=== PATIENT | female | born 1970 | race African-American/Black ===

== ENCOUNTER 2023-01-15 19:29 | Emergency (ER) | payer SELFPAY ==
[2023-01-15 21:17] VITALS: BP 175/81; PULSE 71; RESP 18; TEMP 36.4; O2SAT 100; BMI 32.5
== END 2023-01-15 23:29 | disposition left against medical advice (07) ==
PROVIDERS: Emergency Provider Emergency Medicine; PCP Internal Medicine
DX: R03.0 Elevated blood-pressure reading, without diagnosis of hypertension (principal)
CPT/HCPCS: 99281

== ENCOUNTER 2025-02-23 09:42 | Outpatient (REF) | payer OTHER, SELFPAY ==
--- OUTSIDE RECORDS SUMMARY | 2025-02-23 11:48 | XMS_ITS | Clinical Summary ---
Author Organization [facility] Facility Address [address] [place] [id number] Care Team Providers Care Mailroom Manager Name Role Phone Rashmi Troncoso MD Primary Care Provider [phone] Allergies No known active allergies Medications polyethylene glycol-electroly hayden (NULYTELY) 420 g solution Active cetirizine (ZyrTEC) 10 MG tablet Take 10 mg by mouth 1 (one) time each day Active ibuprofen (ADVIL,MOTRIN) 600 MG tablet Take 600 mg by mouth every 6 (six) hours if needed for mild pain Active Nutritional Supplements (VITAMIN D BOOSTER PO) Take 1 tablet by mouth 1 (one) time each day Active CALCIUM-MAGNESIU M-VITAMIN D PO Take by mouth A ctive fluticasone (FLONASE) 50 MCG/ACT nasal spray Administer 1 spray into each nostril 1 (one) time each day Active Active Problems Problem Noted Date Diagnosed Date Vitamin D deficiency 02/04/2021 Essential (primary) hypertension 02/04/2021 Family History Medical History Relation Comments Diabetes Mother Hypertension Mother Arthritis Sister Relation Status Comments Mother Sister Social History Tobacco Use Types Packs/Day Years Used Date Smoking Tobacco: Former Cigarettes Smokeless Tobacco: Current Alcohol Use Standard Drinks/Week Comments Yes 0 (1 standard drink = 0.6 oz pur e alcohol) Occasional social drinker Comments Unknown Sex and Gender Information Value Date Recorded Sex Assigned at Not on file Legal Sex Female 8:40 AM EDT Gender Identity Not on file Sexual Orientation Not on file Plan of Treatment Health Maintenance Due Date Last Done Comments Breast Cancer Screening 1969 Hepatitis B Vaccine (1 of 3 - 19+ 3-dose series) 06/21 Colorectal Cancer Screening: Annual FOBT 2018 Colorectal Cancer Screening: Colonoscopy 2018 Colorectal Cancer Screening: Sigmoidoscopy 2018 Pneumococcal Vaccine: 50+ Years (1 of 1 - PCV) 019 Influenza Vaccine (#1) 2025 Insurance Cig [employer] Care Teams Mailroom Manager Relationship Specialty Start Date End Date Rashmi Troncoso MD PCP - General Internal Medicine 12/14/20
[2025-02-23 14:09] LABS: MANUAL DIFF FLAG NO
[2025-02-23 14:24] LABS: Hematocrit 37.3 % (37.0-47.0); Hemoglobin 11.9 g/dl (12.0-16.0); Imm Gran Abs Auto 0.01 X10*3/uL (0.00-0.03); Imm Gran Pct Auto 0.2 % (0.0-0.4); Lymphocytes Absolute Auto 1.5 X10*3/uL (1.2-4.9); Mean Corpuscular HGB Conc 31.9 g/dl (31.0-35.0); Mean Corpuscular Hemoglobin 28.1 pg (27.0-33.0); Mean Corpuscular Volume 88.2 fL (80.0-98.0); NRBC Abs Auto 0.000 X10*3/uL (0.0-0.012); NRBC Pct Auto 0.0 /100WBC (0.0-0.2); Platelet Count 314 X10*3/uL (160-400); Red Blood Count 4.23 X10*6/uL (4.20-5.50); White Blood Count 4.9 X10*3/uL (4.8-10.8)
[2025-02-23 14:27] LABS: Appearance Urine Clear; Glucose Urine UA Negative (Negative); PH 5.5 (5.0-9.0); Specific Gravity - Urine 1.020 (1.005-1.025)
[2025-02-23 14:54] LABS: Alanine Aminotransferase 17 U/L (0-31); Albumin Level 4.1 g/dL (3.5-5.0); Alkaline Phosphatase 102 U/L (39-117); Anion Gap 12 (12-20); Aspartate Amino Transferase 23 U/L (5-31); Blood Urea Nitrogen 16 mg/dL (9-16); Calcium 9.2 mg/dL (8.4-10.2); Carbon Dioxide 27 mmol/L (22-29); Chloride 106 mmol/L (96-108); Cholesterol 164 mg/dL (<200); Estimated Glomerular Filt Rate > 60; HDL Cholesterol 58 mg/dL (>40); Potassium 3.4 mmol/L (3.3-5.1); Sodium 142 mmol/L (135-145); Total Protein 8.1 g/dL (6.5-8.0); Triglycerides 98 mg/dL (<150)
== END 2025-02-23 09:43 | disposition home or self-care (01) ==
LOC: HO.WFDLDS 09:42
PROVIDERS: PCP Internal Medicine; Visit Provider Internal Medicine
DX: Z13.228 Encounter for screening for other metabolic disorders (principal); R63.5 Abnormal weight gain; Z13.0 Encounter for screening for diseases of the blood and blood-forming organs and certain disorders involving the immune mechanism; N89.9 Noninflammatory disorder of vagina, unspecified; Z76.89 Persons encountering health services in other specified circumstances; R73.03 Prediabetes; I10 Essential (primary) hypertension
CPT/HCPCS: 36415; 80053; 80061; 81003; 83036; 84443; 85025; 96127

== ENCOUNTER 2025-02-23 09:42 | Outpatient (AMB) | payer OTHER, SELFPAY ==
--- NOTE | 2025-02-23 09:47 | MHC.PC.OV ---
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 Intake Note: New patient visit [employer] Director Required: No Allergies No Known Allergies Allergy (Verified 02/23/25 09:47) Tobacco use date assessed: 02/23/25 Dental Screening Dental Screen Date: 02/23/25 Did you have a dental visit in the last 12 months?: Yes Did you have a dental problem in the last 6 months where you did not have access to dental care?: No Was dental information given to patient?: Patient has dentist HPI HPI Comments History of Present Illness Details 54 year old female with a past medical history of hypertension, prediabetes, glaucoma/early glaucoma presenting to [facility]. She transferred from [facility]. Requested but havent received records CV: on hctz 12.5mg daily. BP is high here. At home she notes 140/80s. She was previously on five medications for blood pressure, prediabetes but could not get refills. She would really like to lose weight and stop the need for so many medications but she has not been successful despite diet and exercise. Lost her 26 year old son in an MVA. Started an organization. Feeling stable. Had glaucoma. 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 Had ablation in her 20s. No recent menses Mammo 2 months ago-through [facility] Colonoscopy UTD ROS CONSTITUTIONAL: Denies weight loss, fever and chills. HEENT: Denies changes in vision and hearing. RESPIRATORY: Denies SOB and cough. CV: Denies palpitations and CP GI: Denies abdominal pain, nausea, vomiting and diarrhea. : Denies dysuria and urinary frequency. MSK: Denies new myalgia and joint pain. SKIN: Denies rash and pruritus. NEUROLOGICAL: Denies headache PSYCHIATRIC: Denies recent changes in mood. PHYSICAL EXAM: GENERAL: Alert and oriented x 3. NAD EYES: EOMI. Anicteric. HENT: Moist mucous membranes. No scleral icterus. No cervical lymphadenopathy. LUNGS: Clear to auscultation bilaterally. CARDIOVASCULAR: Regular rate and rhythm. No murmur. No JVD. ABDOMEN: Soft, non-tender +bs EXTREMITIES: No edema. Non-tender. SKIN: No rashes or lesions. Warm. NEUROLOGIC: No focal neurological deficits. CN II-XII grossly intact PSYCHIATRIC: Cooperative. 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 1. Little interest or pleasure in doing things: not at all 2. Feeling down, depressed, or hopeless: not at all 3. Trouble falling or staying asleep, or sleeping too much: not at all 4. Feeling tired or having little energy: several days 5. Poor appetite or overeating: nearly every day 6. Feeling bad about yourself - or that you are a failure or have let yourself or your family down: not at all 7. Trouble concentrating on things, such as reading the newspaper or watching television: not at all 8. Moving or speaking so slowly that other people could have noticed. Or the opposite - being so fidgety or restless that you have been moving around a lot more than usual: not at all 9. Thoughts that you would be better off or of hurting yourself in some way: not at all Total score: 4 Depression Screening Interpretation: Negative Depression Screening Done: Yes 09666 - PHQ-9 Billing: Yes Source: Developed by Drs. Bradford Florian, Netta Stoll, Nito Joshua and colleagues, with an educational pelon from [employer]. Thrive Questionnaire Date Thrive assessed: 02/23/25 I am a: Patient What is your living situation today?: I have a steady place to live Within the past 12 months, did the food you bought not last and you didn't have the money to get more?: Never true Within the past 12 months, did you worry whether your food would run out before you got money to buy more?: Never true Do you have trouble paying for medicines?: No Do you have trouble getting transportation to medical appointments?: No Do you have trouble paying your heating and electricity bill?: No Do you have trouble taking care of your child, family member or friend?: No Do you have trouble with day-to-day activities such as bathing, preparing meals, shopping, managing finances, etc.?: No Are you currently unemployed and looking for a job?: No Are you interested in more education?: No Please select the resources that you would like help with: None Currently or been in a relationship where the following occur: No concerns reported THRIVE Score: 0 AUDIT C Alcohol Use Questionnaire (AUDIT-C) 1. How often do you have a drink containing alcohol?: Monthly or less 2. How many drinks containing alcohol do you have on a typical day when you are drinking?: 1 or 2 3. How often do you have six or more drinks on one occasion?: Never Total Score: 1 PHILIPPE-7 AMB Questionnaire PHILIPPE-7 Date PHILIPPE - 7 assessed: 02/23/25 Feeling nervous, anxious, or on edge: 0 = Not at all Not being able to stop or control worryin = Not at all Worrying too much about different things: 0 = Not at all Trouble relaxin = Not at all Being so restless that it is hard to sit still: 0 = Not at all Becoming easily annoyed or irritable: 0 = Not at all Feeling afraid as if something awful might happen: 0 = Not at all Total PHILIPPE-7 score (0-4 normal; 5-9 mild; 10-14 moderate; 15-21 severe): 0 Source: Developed by Drs. Bradford Florian, Netta Stoll, Nito Joshua and colleagues, with an educational pelon from [employer]. PHILIPPE-7 Assessment Billing PHILIPPE-7 Assessment Tool: PHILIPPE-7 Assessment 87579 Physical exam (Primary Care) Vital Signs: Last Vital Signs Temp 98.2 F 02/23/25 09:53 Pulse 73 02/23/25 09:53 Resp 14 02/23/25 09:53 BP 172/96 H 02/23/25 09:59 Pulse Ox 100 02/23/25 09:53 Oxygen Delivery Method Room Air 02/23/25 09:53 BMI result Body Mass Index 35.5 Tobacco/Smoking Status: Tobacco use Status Tobacco use date assessed 02/23/25 02/23/25 09:50 Patient Tobacco Use Status Never used Tobacco 02/23/25 09:50 e-Cigarette/Vaping Use Never Used 02/23/25 09:50 PHQ-9: PHQ-9 Score PHQ-9: Total score 4 02/23/25 10:01 Depression Screening Interpretation: Negative Thrive Assessment: Date of Thrive Assessment Date Thrive assessed 02/23/25 02/23/25 09:50 Currently or been in a relationship where the following occur: No concerns reported Coding Level of Care Code New Pt Level 4 (86549) Complex EM visit Add On G2211 Diagnoses Establishing care with new doctor, encounter for Z76.89 Prediabetes R73.03 Primary hypertension I10 Hypertension type: primary hypertension Additional Codes PHILIPPE-7 Assessment Billing - PHILIPPE-7 Assessment Tool: PHILIPPE-7 Assessment 19336 ([id number]) PHQ-9 - 78730 - PHQ-9 Billing: Yes ([id number]) Assessment & Plan Assessment & Plan (1) Establishing care with new doctor, encounter for: Code(s): Z76.89 - Persons encountering health services in other specified circumstances (2) Prediabetes: Code(s): R73.03 - Prediabetes Category: Medical (3) Hypertension: Code(s): I10 - Essential (primary) hypertension Category: Medical Qualifiers: Hypertension type: primary hypertension Qualified Code(s): I10 - Essential (primary) hypertension Plan 54 year old to establish care Past medical, surgical, social history reviewed HTN-continue hctz. Start GLP, continue home monitoring. labs ordered. Close follow up. Will add additional medications if it continues to be high Orders: Orders Comprehensive Met. Panel Today R63.5 - Abnormal weight gain, Z13.0 - Encounter for screening for diseases of the blood and blood-forming organs and certain disorders involving the immune mechanism, Z13.228 - Encounter for screening for other metabolic disorders Hemoglobin A1c Today R63.5 - Abnormal weight gain, Z13.228 - Encounter for screening for other metabolic disorders UA CC w/rflx Micro + Cult Today N89.9 - Noninflammatory disorder of vagina, unspecified Bacterial Vaginosis Panel Today N89.9 - Noninflammatory disorder of vagina, unspecified Complete Blood Count Auto Diff Today R63.5 - Abnormal weight gain, Z13.0 - Encounter for screening for diseases of the blood and blood-forming organs and certain disorders involving the immune mechanism, Z13.228 - Encounter for screening for other metabolic disorders TSH reflex Free T4 Today R63.5 - Abnormal weight gain, Z13.0 - Encounter for screening for diseases of the blood and blood-forming organs and certain disorders involving the immune mechanism, Z13.228 - Encounter for screening for other metabolic disorders Lipid Panel Today R63.5 - Abnormal weight gain, Z13.0 - Encounter for screening for diseases of the blood and blood-forming organs and certain disorders involving the immune mechanism, Z13.228 - Encounter for screening for other metabolic disorders Medications: New Wegovy (semaglutide (weight loss)) 0.25 mg (0.5 mL) subcut QWEEK 2 mL 3RF NS ondansetron 4 mg PO Q8H PRN 30 tabs 0RF nausea and vomiting hydrochlorothiazide 12.5 mg PO DAILY 90 caps 3RF
[2025-02-23 09:53] VITALS: BP 170/96; PULSE 73; RESP 14; TEMP 36.8; O2SAT 100; BMI 35.5
[2025-02-23 09:59] VITALS: BP 172/96
--- OUTSIDE RECORDS SUMMARY | 2025-02-23 10:33 | XMS_ITS ---
Author Name [facility] Organization Unknown Problems Problem Status Onset Date Problem Type Date of Resoluti on Source Encounter for screening mammogram for malignant neoplasm of breast active EncounterDiagnosisAct CCT Encounters Encounter Type Encounter Reason Primary Diagnosis Location Date Ambulatory Encounter for screening mammogram for malignant neoplasm of breast Encounter for screening mammogram for malignant neoplasm of breast [facility] 01/21/2025 Care Team Organization Name Specialty Phone Email Start Date End [facility] 01/21/2025 02/19/2025 [facility] [place] [facility] NO PCP Primary Care 12/22/2024 [facility] REFUGIO HOLLIDAY Primary Care 12/08/2022 02/18/2024 [facility] REFUGIO HOLLIDAY Primary Care 11/06/2022 02/18/2024 [facility] [place] Primary Care 07/10/2022 [facility] [place] Primary Care 05/09/2022
--- OUTSIDE RECORDS SUMMARY | 2025-02-23 10:33 | XMS_ITS | Clinical Summary ---
Author Organization [facility] Address [address] [place] [address] Care Team Providers Care Sociology Teacher Name Role Phone Pcp, No Primary Care Provider Unavailabl e Encounters Date Type Department Care Team Description 01/21/2025 8:30 AM EDT - 01/21/2025 11:59 PM EDT Hospital Encounter [facility] Mammography [address] [place] [address] System, Provider Not In Encounter for screening mammogram for malignant neoplasm of breast Discharge Disposition: Home or Self Care 01/21/2025 Travel from Last 3 Months Social History Tobacco Use Types Packs/Day Years Used Date Smoking Tobacco: Never Assessed Comments Unknown Sex and Gender Information Value Date Recorded Sex Assigned at Female 12/22/2024 9:27 AM EDT Legal Sex Female 11:57 AM EDT Gender Identity Female 12/22/2024 9:27 AM EDT Sexual Orientation Heterosexual (straight) 12/22 9:27 AM EDT Plan of Treatment Health Maintenance Due Date Last Done Comments Hepatitis C Virus Screening 1969 HIV Screening 1982 DTaP/Tdap/Td Vaccines (1 - Tdap) 1988 Hepatitis B Vaccines (1 of 3 - 19+ 3-dose series) 06/02 Pap Smear (Ages 21-65) 1990 Colonoscopy 2014 Pneumococcal Vaccines 50+ (1 of 1 - PCV) 2019 Zoster (Shingles) Vaccine (1 of 2) 2019 COVID-19 Vaccine (1 - season) 2024 Influenza Vaccine 01/30/2025 Mammogram 01/21/2027 01/21/2025 Procedures Procedure Name Priority Date/Time Associated Diagnosis Comments MM MAMMOGRAM SCREENING-BILAT (MOBILE) Routine 01/21/2025 8:53 AM EDT Encounter for screening mammogram for malignant neoplasm of breast from Last 3 Months Results * MM Mammogram screening-Bilateral (mobile) (01/21/2025 8:53 AM EDT) Anatomical Region Laterality Modality Breast Bilateral Mammography 01/21/2025 8:41 AM EDT Impressions 01/23/2025 2:34 PM EDT No mammographic evidence of malignancy. OVERALL ASSESSMENT: BI-RADS 1: Negative. RECOMMENDATION: Routine screening mammography recommended in 1 year The patient will receive a lay summary of the results of this breast imaging exam. Lay summaries for mammography examinations will also identify the patient's personal breast tissue composition as required by state law. If the patient has a finding requiring further evaluation, our facility will contact the patient to arrange additional imaging. Narrative 01/23/2025 2:34 PM EDT EXAMINATION: MM BILATERAL DIGITAL SCREENING CLINICAL INFORMATION: Screening. Baseline COMPARISON: None TECHNIQUE: Bilateral full field direct digital mammography was performed in the standard projections. Computer-aided detection was utilized by the radiologist in the interpretation of this examination. FINDINGS: There are scattered areas of fibroglandular density. (ACR BI-RADS breast composition Category b)*. Right Breast: There are no suspicious masses, grouped calcifications or architectural distortion. Left Breast: There are no suspicious masses, grouped calcifications or architectural distortion. us Rad-Self Referred MD IMG MAMMOGRAPHY ORDERABLES Final Result from Last 3 Months Insurance [employer] HMO/POS Care Teams Sociology Teacher Relationship Specialty Start Date End Date Pcp, Maria Elena PCP - General General Medicine 02/26/24
== END 2025-02-23 10:29 | disposition home or self-care (01) ==
LOC: HO.HMCFM 09:43
PROVIDERS: PCP Internal Medicine; Visit Provider Internal Medicine
DX: Z76.89 Persons encountering health services in other specified circumstances (principal); R73.03 Prediabetes; I10 Essential (primary) hypertension

== ENCOUNTER 2025-05-26 09:57 | Outpatient (AMB) | payer OTHER, SELFPAY ==
--- OUTSIDE RECORDS SUMMARY | 2025-05-22 14:30 | XMS_ITS | Encounter Summary ---
Author Organization [facility] Address [address] [place] [address] Care Team Providers Care Warp Trucker Name Role Phone Ubaldo Urbina MD Primary Care Provider Reason for Visit * Reason Comments Vaginal/vulvar Complaint Pt here for vag inal dryness and odor Denies any burning or itching Encounter Details Date Type Department Care Team (Late st Contact Info) Description 05/22/2025 2:30 PM EST Office Visit [facility] [place] [address] [place] [address] [place] [phone] Khurram Ruffin MD [address] [facility] [address] [place] [address] Vaginal odor (Primary Dx) Social History Tobacco Use Types Packs/Day Years Used Date Smoking Tobacco: Former Cigarettes Smokeless Tobacco: Current Alcohol Use Standard Drinks/Week Comments Yes 0 (1 standard drink = 0.6 oz pur e alcohol) Comments Unknown Sex and Gender Information Value Date Recorded Sex Assigned at Not on file Legal Sex Female 6:29 AM EST Gender Identity Not on file Sexual Orientation Not on file documented as of this encounter Last Filed Vital Signs Vital Sign Reading Time Taken Comments Blood Pressure 148/84 05/22/2025 3:26 PM EST Pulse 62 05/22/2025 3:26 PM EST Temperature - - Respiratory Rate - - Oxygen Saturation - - Inhaled Oxygen Concentration - - Weight 87.9 kg (193 lb 11.2 oz) 05/22/2025 3:26 PM EST Height 154.9 cm (5' 1 ) 05/22/2025 3:26 PM EST Body Mass Index 36.6 05/22/2025 3:26 PM EST documented in this encounter Plan of Treatment Upcoming Encounters Date Type Department Care Team (Late st Contact Info) Description 07/21/2025 11:00 AM EST Office Visit Obstetrics and Gynecology [facility] [address] [place] [phone] Khurram Ruffin MD [address] [place] [address] [place] [phone] 08/18/2025 11:00 AM EST Consult Obstetrics and Gynecology [facility] [address] [place] [phone] April Cardoza, [facility] [address] [place], [place] [phone] documented as of this encounter Procedures Procedure Name Priority Date/Time Associated Diagnosis Comments BACTERIAL VAGINITIS PATHOGENS BY PCR Routine 05/22/2025 3:26 PM EST Vaginal odor CHLAMYDIA TRACHOMATIS AND NEISSERIA GONORRHOEAE PCR Routine 05/22/2025 3:26 PM EST Vaginal odor documented in this encounter Results * (ABNORMAL) Bacterial vaginitis pathogens molecular study (05/22/2025 3:26 PM EST) Gardnerella vaginosis Positive(A) Negative LAB MOLECULAR DIAGNOSTICS METHOD 05/23/2025 2:05 AM EST [facility] Nakia Species Negative Negative LAB MOLECULAR DIAGNOSTICS METHOD 05/23/2025 2:05 AM EST [facility] Nakia glabrata Negative Negative LAB MOLECULAR DIAGNOSTICS METHOD 05/23/2025 2:05 AM EST [facility] Trichomonas vaginalis Negative Negative LAB MOLECULAR DIAGNOSTICS METHOD 05/23/2025 2:05 AM EST [facility] Swab Cervix uteri structure / Unknown Non-blood Collection / Unknown 05/22/2025 3:26 PM EST 05/22/2025 3:26 PM EST Khurram Ruffin MD LAB MICROBIOLOGY - GENERAL ORD ERABLES Final Result Performing Organization Address City/[facility]/ZIP Co de Phone Number [facility] [address] [place] [address], [place] [phone] * Chlamydia trachomatis and Neisseria gonorrhoeae molecular study (05/22/2025 3:26 PM EST) N. gonorrhoeae, RNA Probe Negative Negative LAB MOLECULAR DIAGNOSTICS METHOD 05/23/2025 4:02 AM EST [facility] Chlamydia, RNA Probe Negative Negative LAB MOLECULAR DIAGNOSTICS METHOD 05/23/2025 4:02 AM EST [facility] Swab Vaginal structure / Unknown Non-blood Collection / Unknown 05/22/2025 3:26 PM EST 05/22/2025 3:26 PM EST Khurram Ruffin MD LAB MICROBIOLOGY - GENERAL ORD ERABLES Final Result [facility] [address] [place] [address], [place] [phone] documented in this encounter Visit Diagnoses Diagnosis Vaginal odor- Primary Unspecified symptom associated with female genital organs documented in this encounter Care Teams Warp Trucker Relationship Specialty Start Date End Date Ubaldo Urbina MD [address] [place] [phone] PCP - General 10/16/22 documented as of this encounter
--- NOTE | 2025-05-26 10:16 | A.OFFPC_ITS ---
Vital Signs 05/26/25 10:24 Height 5 ft 1.18 in Weight 189 lb BMI 35.5 BP 122/84 Blood Pressure Location Rt brachial Position Sitting Respiration 14 Pulse 71 Pulse Source Pulse Oximeter Pulse Oximetry (%) 99 Oxygen Delivery Method Room Air Intake Visit Reasons: DM Intake Note: Diabetes follow up Biscuit Packer Required: No Allergies No Known Allergies Allergy (Verified 05/26/25 10:18) Tobacco use date assessed: 05/26/25 Dental Screening Dental Screen Date: 02/23/25 HPI HPI Comments History of Present Illness Details 54 year old female with a past medical h istory of hypertension, prediabetes, glaucoma/early glaucoma presenting for follow up CV: on hctz 12.5mg daily. Normotensive. She was unsuccessful despite diet and exercise. She lost a few pounds with a free sample of mounjaro. Her insurance wont cover. Her last A1C was 6.3% it improved today to 5.6% Lost her 26 year old son in an MVA. Started an organization. Feeling stable. Had glaucoma. 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 Had ablation in her 20s. No recent menses Mammo 2 months ago-through [facility] Colonoscopy UTD ROS CONSTITUTIONAL: Denies weight loss, fever and chills. HEENT: Denies changes in vision and hearing. RESPIRATORY: Denies SOB and cough. CV: Denies palpitations and CP GI: Denies abdominal pain, nausea, vomiting and diarrhea. : Denies dysuria and urinary frequency. MSK: Denies new myalgia and joint pain. SKIN: Denies rash and pruritus. NEUROLOGICAL: Denies headache PSYCHIATRIC: Denies recent changes in mood. PHYSICAL EXAM: GENERAL: Alert and oriented x 3. NAD EYES: EOMI. Anicteric. HENT: Moist mucous membranes. No scleral icterus. No cervical lymphadenopathy. LUNGS: Clear to auscultation bilaterally. CARDIOVASCULAR: Regular rate and rhythm. No murmur. No JVD. ABDOMEN: Soft, non-tender +bs EXTREMITIES: No edema. Non-tender. SKIN: No rashes or lesions. Warm. NEUROLOGIC: No focal neurological deficits. CN II-XII grossly intact PSYCHIATRIC: Cooperative. 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 Current occupational exposures/hazards: No Cognitive needs: No Hearing needs: No Vision needs: No Questionnaire Thrive Questionnaire Date Thrive assessed: 02/23/25 I am a: Patient What is your living situation today?: I have a steady place to live Within the past 12 months, did the food you bought not last and you didn't have the money to get more?: Never true Within the past 12 months, did you worry whether your food would run out before you got money to buy more?: Never true Do you have trouble paying for medicines?: No Do you have trouble getting transportation to medical appointments?: No Do you have trouble paying your heating and electricity bill?: No Do you have trouble taking care of your child, family member or friend?: No Do you have trouble with day-to-day activities such as bathing, preparing meals, shopping, managing finances, etc.?: No Are you currently unemployed and looking for a job?: No Are you interested in more education?: No Please select the resources that you would like help with: None Currently or been in a relationship where the following occur: No concerns reported THRIVE Score: 0 AUDIT C Alcohol Use Questionnaire (AUDIT-C) 1. How often do you have a drink containing alcohol?: Monthly or less 2. How many drinks containing alcohol do you have on a typical day when you are drinking?: 1 or 2 3. How often do you have six or more drinks on one occasion?: Never Total Score: 1 PHILIPPE-7 AMB Questionnaire PHILIPPE-7 Date PHILIPPE - 7 assessed: 02/23/25 Source: Developed by Drs. Bradford Florian, Netta Stoll, Nito Joshua and colleagues, with an educational eplon from [employer]. Physical exam (Primary Care) Vital Signs: Last Vital Signs Pulse 71 05/26/25 10:24 Resp 14 05/26/25 10:24 BP 122/84 05/26/25 10:24 Pulse Ox 99 05/26/25 10:24 Oxygen Delivery Method Room Air 05/26/25 10:24 BMI result Body Mass Index 35.5 Tobacco/Smoking Status: Tobacco use Status Tobacco use date assessed 05/26/25 05/26/25 10:34 Patient Tobacco Use Status Never used Tobacco 05/26/25 10:17 e-Cigarette/Vaping Use Never Used 05/26/25 10:17 Thrive Assessment: Date of Thrive Assessment Date Thrive assessed 02/23/25 05/26/25 10:17 Currently or been in a relationship where the following occur: No concerns reported Results AMB Hemoglobin A1c AMB Hemoglobin A1c 5.6 % Last Edit by Bri Dorado CMA on 05/26/25 10:36 Results Reviewed Results Reviewed: Laboratory Last Values Hgb A1c (Clinic) 5.6 % (4.0-6.0) 05/26/25 10:34 Coding Level of Care Code Est Pt Level 4 (20942) Diagnoses Obesity (BMI 30-39.9) E66.9 Assessment & Plan Assessment & Plan (1) Obesity (BMI 30-39.9): Code(s): E66.9 - Obesity, unspecified Category: Medical Plan Obesity, htn, prediabetes. Good candidate for GLP but not covered Trial phentermine. Monitor BP. referral to weight management Orders: Orders AMB Hemoglobin A1c Today R73.03 - Prediabetes Referrals Medical Weight Management Referral I10 - Essential (primary) hypertension, R63.5 - Abnormal weight gain, R73.03 - Prediabetes Medications: New phentermine must administer 30 minutes before or 1-2 hours after breakfast [id number] [facility] GroupGDRX Member [id number] 37.5 mg PO DAILY 30 caps 3RF Mounjaro (tirzepatide) for 4 weeks 2.5 mg (0.5 mL) subcut QWEEK 2 mL 3RF NS Discontinued Wegovy (semaglutide (weight loss)) Discontinued Reason: Doctor's Order 0.25 mg (0.5 mL) subcut QWEEK 2 mL 3RF NS
[2025-05-26 10:24] VITALS: BP 122/84; PULSE 71; RESP 14; O2SAT 99; BMI 35.5
--- OUTSIDE RECORDS SUMMARY | 2025-05-26 11:56 | XMS_ITS | Clinical Summary ---
Author Organization [facility] Address [address] [place] [address] Care Team Providers Care Meat Grading Machine Operator Name Role Phone Pcp, No Primary Care Provider Unavailabl e Social History Tobacco Use Types Packs/Day Years [...] Zoster (Shingles) Vaccine (1 of 2) 2019 Influenza Vaccine 01/30/2025 COVID-19 Vaccine (1 - season) 2025 Mammogram 01/21/2027 01/21/2025 RSV Vaccine 50 years and old er and Patients (1 - 1-dose 75+ series) 2044 Procedures Procedure Name Priority Date/Time Associated Diagnosis Comments MM MAMMOGRAM SCREENING-BILAT (MOBILE) Routine 01/21/2025 8:53 AM EDT Encounter for screening mammogram for malignant neoplasm of breast from Last 3 Months or Most Recently Relevant to Health Maintenance Results * MM Mammogram screening-Bilateral (mobile) (01/21/2025 [...] ORDERABLES Final Result from Last 3 Months or Most Recently Relevant to Health Maintenance Insurance [employer] HMO/POS Care Teams Meat Grading Machine Operator Relationship Specialty Start Date End Date Pcp, No PCP - General General Medicine 02/26/24
--- OUTSIDE RECORDS SUMMARY | 2025-05-26 11:56 | XMS_ITS | Encounter Summary ---
Author Organization [facility] Address [address] [place] [address] Care Team Providers Care Hyperion Essbase Developer Name Role Phone Ubaldo Urbina MD Primary Care Provider Encounter Details Date Type Department Care Team (Late Contact Info) Description 05/26/2025 Telephone Obstetrics and Gynecology [facility] [address] [place] [phone] Khurram Ruffin MD [address] [place] [address] Social History Tobacco Use Types Packs/Day Years [...] on file documented as of this encounter Progress Notes * Evelina Howard - 05/26/2025 8:29 AM EST Patient called into office regarding prescribed Flagyl medication. Patient reports picking up the meds. C/o the pills being too large for her stomach to handle. Patient requesting a Rx for a gel like medication for relief instead. Confirmed call back # on file : [phone] documented in this encounter Plan of Treatment Upcoming Encounters Date Type Department Care Team (Late Contact Info) Description 07/21/2025 11:00 AM EST Office Visit Obstetrics and Gynecology [facility] [address] [place] [phone] Khurram Ruffin MD [address] [place] [address] [place] [phone] 08/18/2025 11:00 AM EST Consult Obstetrics and Gynecology [facility] [address] [place] [phone] April Cardoza, [facility] [address] [place], [place] [phone] documented as of this encounter Visit Diagnoses Not on filedocumented in this encounter Care Teams Hyperion Essbase Developer Relationship Specialty Start Date End Date Ubaldo Urbina MD [address] [place] [address] PCP - General 10/16/22 documented as of this encounter
--- OUTSIDE RECORDS SUMMARY | 2025-05-26 11:56 | XMS_ITS | Clinical Summary ---
Author Organization [facility] [address] [place] [address] [place] [phone] Phone Care Team Providers Care French Pastry Cook Name Role Phone Ubaldo Urbina MD Primary Care Provider Allergies No known active allergies Medications amLODIPine (NORVASC) 10 mg tablet Take 1 tablet (10 mg total) by mouth 1 (one) time each day. 02/18/2024 Active calcium citrate/vitamin D3 (CALCIUM CITRATE + D ORAL) Take by mouth daily. Active latanoprost (XALATAN) 0.005 % ophthalmic solution INSTILL 1 DROP IN BOTH EYES EVERY DAY AT BEDTIME Active losartan (COZAAR) 100 mg tablet Take 1 tablet (100 mg total) by mouth 1 (one) time each day. 12/10/2023 Active metFORMIN (GLUCOPHAGE) 850 mg tablet Take 1 tablet (850 mg total) by mouth 2 (two) times a day with meals. 12/06/2023 Active metoprolol succinate (TOPROL-XL) 50 mg 24 hr tablet Take 1 tablet (50 mg total) by mouth 1 (one) time each day. Active timolol (TIMOPTIC-XR) 0.5 % ophthalmic gel-forming 1 Drop daily. Active hydroCHLOROthia zide (MICROZIDE) 12.5 mg capsule TAKE 1 CAPSULE BY MOUTH EVERY MORNING 30 capsule 11/07/2024 Active metroNIDAZOLE (FLAGYL) 500 mg tabletIndicatio ns:BV (bacterial vaginosis) Take 1 tablet (500 mg total) by mouth 2 (two) times a day for 7 days. Do not use mouth wash or consume alcohol until 48 hours after last dose 14 tablet 05/25/2025 Active Active Problems Problem Noted Date Diagnosed Date Hypertension 05/09/2022 Prediabetes 05/04/2022 Chronic post-traumatic headache, not intractable 11/29/2016 Allergic rhinitis 11/04/2016 Obesity (BMI 30-39.9) 10/20/2016 Encounters Date Type Department Care Team Description 05/26/2025 Telephone [facility]s [facility] [address] [place] [phone] Khurram Ruffin MD 05/25/2025 Results Follow-Up [place] [phone] Khurram Ruffin MD 05/22/2025 2:30 PM EST Office Visit [facility] [place] [address] [place], [place] [address] [phone] Khurram Ruffin MD Vaginal odor (Primary Dx) from Last 3 Months Immunizations Immunization Administration Dates Next Due Measles 07/27/2006 Mumps 07/27/2006 Pfizer SARS-CoV-2 COVID-19, mRNA, LNP-S, preservative free 11/20/2020,10/20/2020 Rubella 07/27/2006 Tdap Tetanus diptheria acell ular pertussis (Boostrix; Adacel) 7yo and older 10/16/2014 Surgical History Surgery Date Site/Laterality Comments SECTION 1993 PROCEDURE: HISTORICAL ; COMMENT: x1 OTHER SURGICAL HISTORY 1997 PROCEDURE: CA HYSTEROSCOPY ENDOMETRIAL ABLATION WISDOM TOOTH EXTRACTION PROCEDURE: HISTORICAL WISDOM TEETH EXTRACTION TUBAL LIGATION PROCEDURE: HISTORICAL TUBAL LIGATION COLONOSCOPY 11/11/2020 PROCEDURE: HISTORICAL COLONOSCOPY; COMMENT: mild diverticulosis, no polyps Medical History Medical History Date Comments Obesity (BMI 30-39.9) 10/20/2016 DX:Obesity (BMI 30-39.9) Vitamin D deficiency 11/04/2016 DX:Vitamin D deficiency Allergic rhinitis 11/04/2016 DX:Allergic rh initis Family History Medical History Relation Name Comments Diabetes Mother hypertension Arthritis Sister Breast cancer Neg Hx Relation Name Status Comments Father Alive Maternal Grandfather Maternal Grandmother Mother Alive Paternal Grandfather Paternal Grandmother Sister Alive x 1 healthy Social History Tobacco Use Types Packs/Day Years Used Date Smoking Tobacco: Former Cigarettes Smokeless Tobacco: Current Alcohol Use Standard Drinks/Week Comments Yes 0 (1 standard drink = 0.6 oz pur e alcohol) Comments Unknown Sex and Gender Information Value Date Recorded Sex Assigned at Not on file Legal Sex Female 6:29 AM EST Gender Identity Not on file Sexual Orientation Not on file Obstetrics History Last Filed Vital Signs Vital Sign Reading [...] Mass Index 36.6 05/22/2025 3:26 PM EST Plan of Treatment Upcoming Encounters Date Type Department Care Team (Late st Contact Info) Description 07/21/2025 11:00 AM EST Office Visit Obstetrics and Gynecology [facility] [address] [place] [phone] Khurram Ruffin MD [address] [place] [address] [place] [phone] 08/18/2025 11:00 AM EST Consult Obstetrics and Gynecology [facility] [address] [place] [phone] April Cardoza, [facility] [address] [place], [place] [phone] Health Maintenance Due Date Last Done Comments Hepatitis B Vaccines (1 of 3 - 19+ 3-dose series) 1988 Cervical Cancer Screening: P ap Smear 06/05/2019 06/05/2016 Pneumococcal Vaccine: 50+ Years (1 of 1 - PCV) 2019 Zoster Vaccines (1 of 2) 2019 HIV Screening 06/10/2022 Social Influencers of Health Screening 06/10/2022 Depression Screening 07/02/2024 Hypertension/CHF/CAD Annual BMP Blood Test 08/09/2024 08/09/2023 DTaP,Tdap,and Td Vaccines (2 - Td or Tdap) 10/16/2024 10/16/2014 COVID-19 Vaccine (3 - 2024-2 6 season) 2025 11/20/2020, 10/20/2020 Influenza Vaccine (#1) 2025 Breast Cancer Screening 01/21/2027 01/22/20 25, 08/15/2019 Cholesterol Screening (Lipid Panel) 08/09/2028 08/09/2023 Colorectal Cancer Screening: Colonoscopy 11/11/2030 11/11/2020 RSV Immunization Adult Patients (1 - 1-dose 75+ series) 2044 Hepatitis C Screening Completed 01/29/2023 HIB Vaccines Aged Out No longer eligi ble based on patient's age to complete this topic HPV Vaccines Aged Out No longer eligi ble based on patient's age to complete this topic Hepatitis A Vaccines Aged Out No long er eligible based on patient's age to complete this topic IPV Vaccines Aged Out No longer eligi ble based on patient's age to complete this topic MMR Vaccines Aged Out No longer eligi ble based on patient's age to complete this topic Meningococcal ACWY Vaccine Aged Out N o longer eligible based on patient's age to complete this topic Meningococcal B Vaccine Aged Out No l onger eligible based on patient's age to complete this topic RSV Immunization Patients Under 20 months Aged Out No longer eligible b ased on patient's age to complete this topic Varicella Vaccines Aged Out No longer eligible based on patient's age to complete this topic Procedures Procedure Name Priority Date/Time Associated Diagnosis Comments BACTERIAL VAGINITIS PATHOGENS BY PCR Routine 05/22/2025 3:26 PM EST Vaginal odor CHLAMYDIA TRACHOMATIS AND NEISSERIA GONORRHOEAE PCR Routine 05/22/2025 3:26 PM EST Vaginal odor HM ANNUAL BMP BLOOD TEST Routine 08/09/2023 LIPID PANEL Routine 08/09/2023 HEPATITIS C SCREENING Routine 01/29/2023 COLONOSCOPY Routine 11/11/2020 SCR MAMMO BI INCL CAD Routine 08/15/2019 11:16 AM EST Encounter for screening mammogram for malignant neoplasm of breast PAP SMEAR Routine 06/05/2016 from Last 3 Months or Most Recently Relevant to Health Maintenance Results * (ABNORMAL) Bacterial vaginitis pathogens molecular study (05/22/2025 3:26 PM EST) Gardnerella vaginosis Positive(A) Negative LAB MOLECULAR DIAGNOSTICS METHOD 05/23/2025 2:05 AM EST [facility] Nakia Species Negative Negative LAB MOLECULAR DIAGNOSTICS METHOD 05/23/2025 2:05 AM EST [facility] Nakia glabrata Negative Negative LAB MOLECULAR DIAGNOSTICS METHOD 05/23/2025 2:05 AM EST [facility] Trichomonas vaginalis Negative Negative LAB MOLECULAR DIAGNOSTICS METHOD 05/23/2025 2:05 AM EST [facility] Swab Cervix uteri structure / Unknown Non-blood Collection / Unknown 05/22/2025 3:26 PM EST 05/22/2025 3:26 PM EST Khurram Ruffin MD LAB MICROBIOLOGY - GENERAL ORD ERABLES Final Result [facility] [address] [place] [address], [place] [phone] * Chlamydia trachomatis and Neisseria gonorrhoeae molecular study (05/22/2025 3:26 PM EST) N. gonorrhoeae, RNA Probe Negative Negative LAB MOLECULAR DIAGNOSTICS METHOD 05/23/2025 4:02 AM EST [facility] Chlamydia, RNA Probe Negative Negative LAB MOLECULAR DIAGNOSTICS METHOD 05/23/2025 4:02 AM EST [facility] Swab Vaginal structure / Unknown Non-blood Collection / Unknown 05/22/2025 3:26 PM EST 05/22/2025 3:26 PM EST Khurram Ruffin MD LAB MICROBIOLOGY - GENERAL ORD ERABLES Final Result [facility] [address] [place] [address], * Annual BMP Blood Test (08/09/2023) Pathologist [facility] Annual BMP Blood Test ABSTRACTED Historical Provider HEALTH MAINTENANCE Final Result * Lipid panel (08/09/2023) [facility] LDL/HDL Ratio 2 0 - 4 Triglycerides 135 0 - 150 mg/dL Cholesterol 183 0 - 200 mg/dL HDL 77 >=40 mg/dL LDL Cholesterol 79 0 - 100 mg/dL Blood Venous blood specimen / Unknown Historical Provider LAB BLOOD ORDERABLES Shobha l Result * Hepatitis C Screening (01/29/2023) Pathologist [facility] Hepatitis C Screening ABSTRACTED [facility] Provider HEALTH MAINTENANCE Final Result * Colonoscopy (11/11/2020) Pathologist [facility] Colonoscopy NO INTERPRETATION , ABSTRACTED Anatomical Region Laterality Modality Other Historical Provider HEALTH MAINTENANCE Final Result * SCR MAMMO BI INCL CAD (08/15/2019 11:16 AM EST) Anatomical Region Laterality Modality Radiographic Torie ging 05/09/2019 4:04 PM EST Narrative 08/15/2019 2:19 PM EST This is a summary report. The complete report is available in the patient's medical record. If you cannot access the medical record, please contact the sending organization for a detailed fax or copy. Exam: Screening mammogram Findings: Digital bilateral full-field screening mammography is performed and interpreted with the aid of computer-aided detection. Comparison is made with 09/26/2013 and 05/16/2010. Breast parenchyma is heterogeneously dense, limiting mammographic sensitivity. No new suspicious mass, architectural distortion, or suspicious calcifications. Impression: No mammographic evidence of malignancy. BI-RADS 1 - negative 5 year breast cancer risk assessment 0.9 % Lifetime breast cancer risk assessment 6.7 % Breast cancer risk category Low (<15%) Procedure Note Bruna Dowling MD - 06/20/2022 This is a summary report. The complete report is available in thepatient's medical record. If you cannot access the medical record, pleasecontact the sending organization for a detailed fax or copy. Exam: Screening mammogram Findings: Digital bilateral full-field screening mammography is performedand interpreted with the aid of computer-aided detection. Comparison ismade with 09/26/2013 and 05/16/2010. Breast parenchyma is heterogeneously dense, limiting mammographicsensitivity. No new suspicious mass, architectural distortion, orsuspicious calcifications. Impression: No mammographic evidence of malignancy. BI-RADS 1 - negative 5 year breast cancer risk assessment 0.9 % Lifetime breast cancer risk assessment 6.7 % Breast cancer risk category Low (<15%) Nydia Giordano MD IMG XR PROCEDURES Final Res ult * Hm Pap Smear (06/05/2016) HM Pap smear NO INTERPRETATION , ABSTRACTED Historical Provider HEALTH MAINTENANCE Final Result from Last 3 Months or Most Recently Relevant to Health Maintenance Insurance [employer] Care Teams French Pastry Cook Relationship Specialty Start Date End Date Ubaldo Urbina MD [address] [place] [phone] PCP - General 10/16/22
--- OUTSIDE RECORDS SUMMARY | 2025-05-26 11:56 | XMS_ITS | Encounter Summary ---
Author Organization [facility] Address [address] [place] [address] Care Team Providers Care Remediation Technician Name Role Phone Ubaldo Urbina MD Primary Care Provider Encounter Details Date Type Department Care Team (Late st Contact Info) Description 05/25/2025 Results Follow-Up [facility] [address] [place] [address] [place] [phone] Khurram Ruffin MD [address] [facility] [address] [place] [address] Social History Tobacco Use Types Packs/Day Years [...] as of this encounter Progress Notes * Gloria Haque RN - 05/25/2025 3:30 PM EST Pt contacted , notified of bv and offered treatment per protocol , pt requesting metronidazole , advised to refrain from intercourse during treatment and 7 days post treatment .Reviewed genital hygiene , documented in this encounter Plan of Treatment Upcoming Encounters Date Type Department Care Team (Late st Contact Info) Description 07/21/2025 11:00 AM EST Office Visit Obstetrics and Gynecology [facility] [address] [place] [phone] Khurram Ruffin MD [address] [place] [address] [place] [phone] 08/18/2025 11:00 AM EST Consult Obstetrics and Gynecology [facility] [address] [place] [phone] April Cardoza, [facility] [address] [place], [place] [phone] documented as of this encounter Visit Diagnoses Not on filedocumented in this encounter Care Teams Remediation Technician Relationship Specialty Start Date End Date Ubaldo Uribna MD [address] [place] [phone] PCP - General 10/16/22 documented as of this encounter
== END 2025-05-26 10:44 | disposition home or self-care (01) ==
LOC: HO.HMCFM 09:58
PROVIDERS: PCP Internal Medicine; Visit Provider Internal Medicine
DX: R73.03 Prediabetes (principal); Z68.35 Body mass index [BMI] 35.0-35.9, adult; E66.9 Obesity, unspecified

== ENCOUNTER → 2025-05-26 09:57 | Outpatient (BNVA) | payer OTHER, SELFPAY | PROVIDERS: PCP Internal Medicine; Visit Provider Internal Medicine | DX: E66.9 Obesity, unspecified (principal); I10 Essential (primary) hypertension; E11.9 Type 2 diabetes mellitus without complications; Z68.35 Body mass index [BMI] 35.0-35.9, adult | CPT/HCPCS: 83036 ==